=== PATIENT | male | born 1945 | race Caucasian/White ===

== ENCOUNTER 2020-05-03 07:03 | Day surgery (SDC) | payer MEDICARE ==
[2020-04-29 11:37] LABS: BASOPHILS % (AUTO) 0.2 % (0.0-5.0); EOSINOPHILS % (AUTO) 1.8 % (0.0-8.0); HEMATOCRIT 42.7 % (42-54); LYMPHOCYTES % (AUTO) 22.5 % (21.0-51.0); MEAN CORPUSCULAR HEMOGLOBIN 32.7 pg (27.0-33.0); MEAN CORPUSCULAR HGB CONC 33.5 g/dL (32.0-36.0); MEAN CORPUSCULAR VOLUME 97.7 fL (79-99); MONOCYTES % (AUTO) 7.9 % (3.0-13.0); NEUTROPHILS % (AUTO) 67.4 % (40.0-77.0); PLATELET COUNT (AUTO) 165 K/uL (130-400); RED BLOOD CELL COUNT(AUTO) 4.37 MIL/uL (4.50-6.20); WHITE BLOOD COUNT (AUTO) 4.4 K/uL (4.8-10.8)
[2020-04-29 11:44] LABS: APPEARANCE,URINE Clear (CLEAR); BILIRUBIN,URINE Negative (NEGATIVE); COLOR,URINE Yellow (YELLOW); GLUCOSE, URINE (UA) Negative (NEGATIVE); KETONES,URINE Negative (NEGATIVE); LEUKOCYTE ESTERASE ,URINE Negative (NEGATIVE); NITRATE,URINE Negative (NEGATIVE); OCCULT BLOOD,URINE Negative (NEGATIVE); PH,URINE 6.5 (5.0-8.0); PROTEIN,URINE Negative (NEGATIVE); UROBILINOGEN,URINE 0.2 mg/dL (0.2-1.0)
[2020-04-29 11:50] LABS: INR 1.05 (0.85-1.15); PROTHROMBIN TIME 11.4 SEC (9.6-11.6)
[2020-04-29 11:51] LABS: PARTIAL THROMBOPLASTIN TIME 28.3 SEC (26.3-35.5)
[2020-04-29 12:00] LABS: CREATININE 0.9 mg/dL (0.5-1.5); POTASSIUM 4.9 mmol/L (3.5-5.1)
[2020-05-02 11:08] VITALS: BP 121/68
[~2020-05-03] VITALS: Ht 188 cm; Wt 74.5 kg
[2020-05-03] VITALS (11 sets, daily range): BP systolic 94–112; BP diastolic 52–67
[~2020-05-03 07:03] MED LIST: 0.9% NACL 500ML IV.SOLN 500 ML IV SCH; ASPI-1443 PO; CALC-1038 PO; FISH1CAP63 PO; GABA800T9 PO; METO-408 PO; MVI PO; OMEP20TA25 PO; SIMV-46 PO
[2020-05-03] MEDS ORDERED: 0.9%NACL 1000ML 1,000 ML IV ONE (07:27)
[2020-05-03] MEDS ORDERED: BIVALIRUDIN 250 MG/VIAL IV ONE (08:08)
[2020-05-03] MEDS ORDERED: LIDOCAINE HCL 400MG/20ML VIAL ONE (08:09)
[2020-05-03] MEDS ORDERED: IOHEXOL 350 MG/ML 100ML INFUS..BTL IV ONE (08:09)
[2020-05-03] MEDS ORDERED: NITROGLYCERIN 2 MG VIAL IV ONE (08:09)
[2020-05-03] MEDS ORDERED: IOHEXOL-350 50ML VIAL IV ONE (08:09)
[2020-05-03] MEDS ORDERED: MIDAZOLAM HCL 1 MG/ML 2ML VIAL ONE (08:34)
[2020-05-03] MEDS ORDERED: CLOPIDOGREL 300MG TAB ONE (09:35)
[2020-05-03] MEDS ORDERED: ASPIRIN 325MG EC TAB PO ONE (09:36)
[2020-05-03] MEDS ORDERED: 0.9%NACL 1000ML 1,000 ML IV SCH (10:30)
== END 2020-05-03 15:30 | disposition home or self-care (01) ==
LOC: DAH 07:03
PROVIDERS: ATTEND Internal Medicine Cardiovascular Disease
DX: I25.119 Atherosclerotic heart disease of native coronary artery with unspecified angina pectoris (principal); E78.5 Hyperlipidemia, unspecified; I44.2 Atrioventricular block, complete; Z79.82 Long term (current) use of aspirin; Z98.890 Other specified postprocedural states; Z72.89 Other problems related to lifestyle; Z79.01 Long term (current) use of anticoagulants; Z79.899 Other long term (current) drug therapy
CPT/HCPCS: 36415; 71045; 80048; 81003; 85025; 85610; 85730; 93005; 93458; A4215; A4216; A4221; A4222; A4223 ×3; A4606; A4663; C1725; C1760; C1769; C1874; C1887; C1894 ×2; C9600; J0583; J1644; J2250; J3490 ×2; J7030; Q9965 ×2; Q9967 ×2; 96360; 96361; 99156; 99157